=== PATIENT | female | born 1985 | race Caucasian/White ===

== ENCOUNTER → 2021-01-22 | Outpatient (CLI) | payer BC, OTHER ==
[2021-01-22 18:44] LABS: HEMOGLOBIN 10.8 gm/dl (12.3-15.3); RED BLOOD COUNT 4.42 M/UL (4.00-5.10); WHITE BLOOD COUNT 7.3 K/UL (4.5-11.0)
[2021-01-22 19:08] LABS: BUN/CREATININE RATIO 16 (0-10)
== END ==
LOC: LAB 18:24
PROVIDERS: Family Medicine
DX: Z00.00 Encounter for general adult medical examination without abnormal findings (principal)
CPT/HCPCS: 80053; 80061; 82607; 84443; 85027

== ENCOUNTER → 2022-01-13 | Outpatient (CLI) | payer BC | LOC: EXRD 11:28 | DX: R31.9 Hematuria, unspecified (principal) | CPT/HCPCS: 76775 ==

== ENCOUNTER → 2022-01-16 | Outpatient (CLI) | payer BC | LOC: CT 05:35 | DX: Z01.89 Encounter for other specified special examinations (principal) ==